=== PATIENT | male | born 1970 | race Two or more races ===

== ENCOUNTER 2019-07-05 03:15 | Emergency (ER) | payer OTHER ==
[2019-07-05 03:40] VITALS: BP 154/99
[2019-07-05] MEDS ORDERED: HEPATITIS B VIRUS VACCINE-PF 0.5 ML VIAL IM ONE ×2 (04:02→04:22)
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
[2019-07-06 07:37] LABS: HEPATITS B SURFACE ANTIGEN Negative (Negative)
[2019-07-07 07:12] LABS: HEPATITIS C VIRUS ANTIBODY <0.1 s/co ratio (0.0-0.9)
== END 2019-07-05 04:47 | disposition home or self-care (01) ==
LOC: ER 03:15
DX: Z77.21 Contact with and (suspected) exposure to potentially hazardous body fluids (principal)
CPT/HCPCS: 36415; 80074; 86701; 90744; 96372; 99283

== ENCOUNTER 2020-06-06 01:08 | Emergency (ER) | payer OTHER ==
[2020-06-06] MEDS ORDERED: FENTANYL CITRATE INJ/PF 100 MCG/2 ML AMPUL IV ONE (01:13)
[2020-06-06] MEDS ORDERED: ONDANSETRON HCL INJ/PF 4 MG/2 ML SDV IV ONE (01:13)
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
[2020-06-06 03:38] VITALS: BP 142/99
== END 2020-06-06 03:46 | disposition home or self-care (01) ==
LOC: ER 01:08
DX: S42.401A Unspecified fracture of lower end of right humerus, initial encounter for closed fracture (principal); M54.2 Cervicalgia; Y35.811A Legal intervention involving manhandling, law enforcement official injured, initial encounter; Y99.0 Civilian activity done for income or pay
CPT/HCPCS: 99285; 96374; 96375; 73080; 73030; 72125; 29105; J3010; J2405